=== PATIENT | female | born 1995 | race Caucasian/White ===

== ENCOUNTER 2019-06-16 17:58 | Emergency (ER) | payer OTHER, SELFPAY ==
[2019-06-16 18:05] VITALS: BP 128/76; PULSE 87; RESP 19; TEMP 37.3; O2SAT 100
--- NOTE | 2019-06-16 18:14 | ED.GENADULT ---
HPI - General Adult General Chief complaint: Upper Respiratory Infection Stated complaint: sore throat/lewis/body ache Source: patient and RN notes reviewed Mode of arrival: ambulatory Limitations: no limitations History of Present Illness HPI narrative: This is a 23 years old female presents to the office for an evaluation of sore throat for a few days. Associated with bodyache and headache. She did recieved influenza vaccine for the season. She does not smoke. She has been taking ibuprofen for her symtpoms. Denies sick contact. Related Data Home Medications Medication Instructions Recorded Confirmed levonorgestrel [Mirena] 1 device INTRAUTERINE ONCE 06/16/19 06/16/19 Allergies Allergy/AdvReac Type Severity Reaction Status Date / Time No Known Allergies Allergy Verified 06/16/19 18:11 Review of Systems Review of Systems: Narrative: CONSTITUTIONAL: Reports feverish,chills, sweats and bodyache. ENT: Reports congestion, sore throat. Denies otalgia. CARDIOVASCULAR: Denies chest pain, palpitation, edema. RESPIRATORY: Denies dyspnea, wheezing. Reports cough GASTROINTESTINAL: Denies abdominal pain, nausea, vomiting, diarrhea. GENITOURINARY: Denies urinary symptoms SKIN: Denies rash MUSCULOSKELETAL: Denies acute back pain NEUROLOGIC: Denies lightheaded PMFSH Social History Social History (Updated 06/16/19 @ 18:20 by MARCELLO Her) Smoking status: Never smoker Comments At time of signature, I agree with nursing past medical, surgical, social and family history. There is no relevant family history pertinent to the presenting complaint. Exam Narrative: Exam Narrative: GENERAL: This is a well-nourished, well-developed patient, in no apparent distress. EYES: Sclera clear/white. Vision is grossly intact. EARS: External ears normal, auditory canals clear and without drainage, TMs normal without perforation. Hearing grossly intact. NOSE: External nose normal with no obvious nasal discharge, nares without redness, no rhinorrhea. THROAT: Mucous membranes moist, posterior pharynx edematous with tonsils 2+ with exudative NECK: Neck supple, non-tender without lymphadenopathy, masses or thyromegaly. CARDIOVASCULAR: Regular rate and rhythm without murmurs, gallops, or rubs. RESPIRATORY: Clear to auscultation. Breath sounds equal bilaterally. No wheezes, rales, or rhonchi. GASTROINTESTINAL: Abdomen soft, non-tender, nondistended. Bowel sounds are active. No hepato-splenomegaly, or palpable masses. No guarding. SKIN: warm, intact with no suspicious lesions or rash, good texture and turgor. NEURO: awake, alert, and oriented to person, place and time. There were no obvious focal neurologic abnormalities. Steady gait [place] Coma Scale Eye Opening: Spontaneous 4 [place] Coma Scale Motor: Obeys Commands 6 [place] Coma Scale Verbal: Oriented 5 Course Vital Signs Vital signs: Vital Signs Temperature 99.1 F 06/16/19 18:05 Pulse Rate 87 06/16/19 18:05 Respiratory Rate 19 06/16/19 18:05 Blood Pressure 128/76 06/16/19 18:05 Pulse Oximetry 100 06/16/19 18:05 Temperature 99.1 F 06/16/19 18:05 Pulse Rate 87 06/16/19 18:05 Respiratory Rate 19 06/16/19 18:05 Blood Pressure 128/76 06/16/19 18:05 Pulse Oximetry 100 06/16/19 18:05 Medical Decision Making Differential Diagnosis Differential Diagnosis: pneumonia, Allergic Rhinitis, Upper respiratory cough syndrome, Pharyngitis, Sinusitis, Bronchitis, otitis media, viral URI, Asthma/reactive airway disease, influenza Vital Signs Vital Signs: Vital Signs Temperature 99.1 F 06/16/19 18:05 Pulse Rate 87 06/16/19 18:05 Respiratory Rate 19 06/16/19 18:05 Blood Pressure 128/76 06/16/19 18:05 Pulse Oximetry 100 06/16/19 18:05 Temperature 99.1 F 06/16/19 18:05 Pulse Rate 87 06/16/19 18:05 Respiratory Rate 19 06/16/19 18:05 Blood Pressure 128/76 06/16/19 18:05 Pulse Oximetry 100 06/16/19 18:05 Lab Data Lab
== END 2019-06-16 18:35 | disposition home or self-care (01) ==
PROVIDERS: Emergency Provider Nurse Practitioner; PCP Physician Assistant
DX: J03.90 Acute tonsillitis, unspecified (principal)
CPT/HCPCS: 87081; 87880; 99213; G0463

== ENCOUNTER 2020-05-01 09:51 | Outpatient (CLI) | payer OTHER, SELFPAY ==
--- NOTE | ~2020-05-01 | XR_ITS ---
EXAMINATION: XR foot LT min 3V EXAM DATE: 05/01/2020 10:08 INDICATION: Left foot pain. TECHNIQUE: Left foot dorsoplantar, lateral and oblique projections obtained and reviewed. There is n o prior study for comparison. FINDINGS: Left metatarsal bones unremarkable. There are no bony erosions identified. No periostea l reaction or band of sclerosis to suggest subacute stress fracture. There are no acute fractures or dislocations identified. There is no subcutaneous gas. The soft tissue is unremarkable. There are no radiopaque foreign bodies. IMPRESSION: Unremarkable XR foot LT min 3V exam. Reviewed, dictated and finalized at location A. [employer]
== END 2020-05-01 09:52 | disposition home or self-care (01) ==
PROVIDERS: PCP Physician Assistant; Visit Provider Physician Assistant
DX: M79.672 Pain in left foot (principal)
CPT/HCPCS: 73630

== ENCOUNTER → 2021-02-25 16:30 | Outpatient (CLI) | payer OTHER, SELFPAY ==
--- NOTE | ~2021-02-25 | XR_ITS ---
EXAMINATION: XR foot RT min 3V DATE: 02/25/2021 16:50 INDICATION: Right foot pain TECHNIQUE: Dorsoplantar, two oblique and lateral views of the right foot were obtained. COMPARISON: None. FINDINGS: Alignment is normal. No fracture. Joint spaces are normal. No cortical erosions or periosteal reactio n. Soft tissues are unremarkable. IMPRESSION: 1. Negative right foot radiographs. Reviewed, dictated and finalized at location A. LAB RADIOLOGY TECHNICIAN
== END ==
PROVIDERS: PCP Physician Assistant; Visit Provider Physician Assistant
DX: M79.671 Pain in right foot (principal)
CPT/HCPCS: 73630

== ENCOUNTER → 2021-11-12 10:46 | Outpatient (CLI) | payer OTHER, SELFPAY ==
--- NOTE | ~2021-11-12 | US_ITS ---
US thyroid INDICATION: Swallowed are of the thyroid gland. Weight gain. Thyromegaly. TECHNIQUE: Real-time sonographic images of the thyroid gland were obtained. COMPARISON: No prior studies for comparison. FINDINGS: The right thyroid lobe measures 5.6 x 1.4 x 1.7 cm. The left thyroid lobe measures 4.8 x 1 .3 x 1.6 cm. There is normal echotexture and echogenicity throughout the thyroid gland. No discrete n odules identified. Normal vascular flow is present. IMPRESSION: 1. Normal thyroid without discrete nodule or abnormal vascularity. Reviewed, dictated and finalized at location A.
--- NOTE | ~2021-11-12 | US_ITS ---
EXAMINATION: US transvaginal DATE: 11/12/2021 11:27 INDICATION: Excessive menstruation. Comparison:No prior studies for comparison. TECHNIQUE: Multiple transabdominal and endovaginal sonographic images of the pelvis performed. FINDINGS: The uterus measures 7.8 x 3.9 x 4.3 cm. The endometrial complex measures 7 mm. The right ovary measures 3.4 x 3.1 x 3 cm and the left ovary measures 4 x 2.4 x 3.4 cm. There are sm all follicles in each ovary. Normal doppler signal in both ovaries. There is no free fluid in the pelvis. There are no abnormal masses seen on either side. IMPRESSION: 1. Unremarkable pelvic ultrasound. Reviewed, dictated and finalized at location A.
== END ==
PROVIDERS: PCP Physician Assistant; Visit Provider Nurse Practitioner
DX: N92.0 Excessive and frequent menstruation with regular cycle (principal); E07.9 Disorder of thyroid, unspecified
CPT/HCPCS: 76536; 76830

== ENCOUNTER 2022-03-21 02:14 | Day surgery (SDC) | payer OTHER, SELFPAY ==
[2022-03-13 13:45] VITALS: BMI 29.5
[2022-03-21 07:43] VITALS: BP 135/85; PULSE 74; RESP 17; TEMP 36.2; O2SAT 100
[2022-03-21] MEDS: LACTATED RINGERS 1,000 ML 150 ML IV CONT (07:51)
--- NOTE | 2022-03-21 08:09 | P.PNAN_ITS ---
Anes - Initial Pre Proc Eval Procedure: Operation Date: 03/21/22 08:30 Proposed Procedures p Esophagogastroduodenoscopy EGD - Pérez Stout MD Date/Time: 03/21/22 08:09 Surgeon: Pérez Stout MD Pre Op Diagnosis: heartburn Patient Data Age: 26 Gender: F Height: 1.63 m Weight: 78.4 kg Last Vital Signs Temp 97.2 F L 03/21/22 07:43 Pulse 74 03/21/22 07:43 Resp 17 03/21/22 07:43 BP 135/85 03/21/22 07:43 Pulse Ox 100 03/21/22 07:43 O2 Del Method Room Air 03/21/22 07:43 Allergies Allergy/AdvReac Type Severity Reaction Status Date / Time No Known Allergies Allergy Verified 03/21/22 07:41 Home Medications Medication Instructions Recorded Confirmed Type pantoprazole 40 mg tablet,delayed 40 mg PO DAILY 03/13/22 03/21/22 History release (Protonix) Patient hx anesthesia problems: none Family hx anesthesia problems: none Results Review: All pre-operative results and documents have been reviewed as part of the pre- operative evaluation. [facility] Social History Social History (Updated 06/16/19 @ 18:20 by MARCELLO Her) Smoking status: Never smoker Alcohol intake: never Substance use: never Substance use type: does not use Living arrangements: alone Spiritual care concerns: No Anes - Eval Final PreProcedure Day of Procedure 03/21/22 08:09 Patient weight: overweight Heart: regular rate and rhythm Lungs: clear to auscultation Airway: Mallampati scale class II Neurological: alert and oriented Last oral intake: >/= 8 hours ASA classification: II Emergent: no Anesthetic plan: proceed Anesthesia type and monitoring: general GIVS and standard monitoring Results Review: All pre-operative results and documents have been reviewed as part of the pre- operative evaluation. Informed Consent: The patient's anesthetic plan and its attendant risks and benefits were discussed with the patient/family/POA. Questions were solicited and answers provided to the satisfaction of the patient/family/POA.
--- NOTE | 2022-03-21 08:17 | PM.HPGS ---
History of Present Illness History of Present Illness Consent: Risks, benefits, and alternatives have been discussed and questions answered. Patient agrees to proceed with procedure. Chief complaint: heartburn Narrative: Erica Giraldo is a 26 year old female with chronic gerd and indigestion recently started on omeprazole daily with some improvement, never had egd. Also burping. Review of Systems Constitutional: Constitutional: Denies headache(s) and Denies weakness Eyes: Eyes: Denies blurry vision ENT: Reports Normal hearing present, Denies headache(s) and Denies neck pain Cardiovascular: Cardiovascular: Denies chest pain and Denies dyspnea Respiratory: Respiratory: Denies dyspnea Gastrointestinal: Gastrointestinal: Reports no additional gastrointestinal complaints Genitourinary: Genitourinary: Denies dysuria Musculoskeletal: Musculoskeletal: Denies neck pain Integumentary/Breasts: Skin/Breast: Denies dry skin Neurologic: Reports Normal hearing present, Denies headache(s) and Denies weakness Psychiatric: Psychiatric: Denies anxiety Endocrine: Endocrine: Denies change in body appearance Hematologic/Lymphatic: Hematologic/Lymphatic: Denies easy bleeding Allergic/Immunologic: Allergic/Immunologic: Denies urticaria PMFSH Past Medical History Medical History (Updated 03/21/22 @ 08:18 by Pérez Stout MD) GERD (gastroesophageal reflux disease) Social History Social History (Updated 06/16/19 @ 18:20 by MARCELLO Her) Smoking status: Never smoker Alcohol intake: never Substance use: never Substance use type: does not use Living arrangements: alone Spiritual care concerns: No Meds Home Medications and Allergies Home Medications Medication Instructions Recorded Confirmed Type pantoprazole 40 mg tablet,delayed 40 mg PO DAILY 03/13/22 03/21/22 History release (Protonix) Allergies Allergy/AdvReac Type Severity Reaction Status Date / Time No Known Allergies Allergy Verified 03/21/22 07:41 Vital Signs Vital Signs - 24 hr 03/21/22 07:43 Temperature 97.2 F L Pulse Rate 74 Respiratory Rate 17 Blood Pressure 135/85 Pulse Oximetry 100 Oxygen Delivery Room Air Exam Const: General: comfortable and no acute distress HENMT: Face/Nose/Sinus: Normal nares present Eyes: General: appearance normal, both eyes and all related structures Neck: Neck: no JVD Resp: Auscultation: clear to auscultation bilaterally Cardio: Rate: regular rate Rhythm: regular rhythm GI: Inspection: non-distended GI Palp: Yes Soft to palpation Skin: General skin exam: normal color Neuro: General: gait normal Speech: normal speech Extrem: General: normal to inspection Psych: Mental Status: mental status grossly normal Assessment and Plan Assessment and plan (1) GERD (gastroesophageal reflux disease): Code(s): K21.9 - Gastro-esophageal reflux disease without esophagitis Status: Acute Assessment and Plan: egd with bx some improvement with ppi
[2022-03-21 08:31] VITALS: BP 119/74; PULSE 75; RESP 19; O2SAT 100
[2022-03-21 08:41] VITALS: BP 126/83; PULSE 78; RESP 19; O2SAT 100
[2022-03-21 08:51] VITALS: BP 131/88; PULSE 82; RESP 16; O2SAT 100
== END 2022-03-21 08:59 | disposition home or self-care (01) ==
PROVIDERS: PCP Physician Assistant; Visit Provider Internal Medicine Gastroenterology
PROC: 0DJ08ZZ Inspection of Upper Intestinal Tract, Via Natural or Artificial Opening Endoscopic (ICD-10-PCS; CPT 43235; principal; 2022-03-21 08:30)
DX: K21.00 Gastro-esophageal reflux disease with esophagitis, without bleeding (principal); K44.9 Diaphragmatic hernia without obstruction or gangrene; K29.70 Gastritis, unspecified, without bleeding
CPT/HCPCS: 43239; 88305; J2704; J7120

== ENCOUNTER 2024-09-19 09:31 | Emergency (ER) | payer OTHER, SELFPAY ==
--- NOTE | ~2024-09-19 | CT_ITS ---
EXAMINATION: CT abdomen pelvis w con DATE: 09/19/2024 10:30 INDICATION: Epigastric pain and nausea TECHNIQUE: Computed tomography (CT) of the abdomen and pelvis was performed with 100 mL Omnipaque-350 intravenous contrast. Automated exposure control and iterative reconstruction technique were employe d. The dose-length product was 246.70 mGy-cm. COMPARISON: None FINDINGS: Lung bases are clear. Heart size is normal. No pericardial or pleural effusion. Liver, pancreas, bila teral adrenal glands and kidneys are normal. 6 mm low-attenuation cyst versus hemangioma in the splee n. There is edematous-appearing wall thickening of the none dilated gallbladder which measures up to 3 cm in maximal diameter which is normal. No pericholecystic inflammatory stranding. No intrahepatic biliary ductal dilation. Bowels including the appendix are normal. Bladder is normal. Pessary in the vaginal vault. Anteverted uterus and bilateral adnexa are unremarkable. No free intraperitoneal gas o r fluid. No pathologically enlarged abdominal or pelvic lymphadenopathy. Mild lumbar spondylosis. IMPRESSION: 1. Edematous wall thickening of the nondilated gallbladder. Differential would include cholecystitis either acute or chronic, sequela of liver, heart or renal disease or other cause of generalized edema . Correlate for Juarez sign and could consider further evaluation with either HIDA scan or right uppe r quadrant ultrasound. Reviewed, dictated and finalized at location A. IMPRESSION: 1. Edematous wall thickening of the nondilated gallbladder. Differential would include cholecystitis either acute or chronic, sequela of liver, heart or renal disease or other cause of generalized edema. Correlate for Juarez sign and cou ld consider further evaluation with either HIDA scan or right upper quadrant ul trasound.
--- NOTE | ~2024-09-19 | US_ITS ---
Limited ABDOMINAL ULTRASOUND (Doppler ultrasound interrogation techniques used as needed for this exa m.) Ordering provider: Milly Sood PA-C History: . ruq pain, n/v . Comparison: None. FINDINGS: PANCREAS: Normal echotexture and size of the visualized portion.. PORTAL VEIN: Hepatopedal flow demonstrated. LIVER: Normal size and echotexture. No focal hepatic lesions or perihepatic fluid collections are shireen ntified. BILIARY DUCTS: No intra or extrahepatic biliary dilation. Common bile duct measures 2.9 mm in diamete r which is normal for patient's age. GALLBLADDER: Stone is seen measuring 1.8 x 2.2 x 0.8 cm. Otherwise, No sludge, gallbladder wall thick ening or pericholecystic fluid. Wall thickness is 5.6 mm. Negative sonographic Juarez's sign. Aorta: Patent. IVC: Patent. FREE FLUID: None visualized within the upper abdomen. IMPRESSION: Cholelithiasis with slightly thickened wall. Clinical evaluation for cholecystitis advised.. Otherwis e, normal limited abdominal ultrasound. Reviewed, dictated and finalized at location A. IMPRESSION: Cholelithiasis with slightly thickened wall. Clinical evaluation for cholecysti tis advised.. Otherwise, normal limited abdominal ultrasound.
[2024-09-19 09:37] VITALS: BP 137/88; PULSE 68; RESP 15; TEMP 36.4; O2SAT 100
--- NOTE | 2024-09-19 09:47 | ED.ABDPAIN ---
HPI - Abdominal Pain General Chief Complaint: Abdominal Pain Stated Complaint: abd pain Time Seen by Provider: 09/19/24 09:33 Source: patient Mode of arrival: ambulatory Limitations: no limitations History of Present Illness HPI narrative: Patient is a 29-year-old female, with PMH of GERD, who presents the ED with report of upper abdominal pain. Patient reports pain began last Thursday in the middle of the night, took pantoprazole and ibuprofen and states the pain resolved. States pain returned Thursday and last night again, worse each time. She tried taking pantoprazole, TUMS, gas-x, ibuprofen last night w/o relief last night. She notes she did eat chili last night. Pain was persistent, radiates diffusely across upper abdomen, and through to her back between her shoulder blades. Reports nausea associated with pain, denies diarrhea, constipation, vomiting, CP, SOB. Related Data Home Medications ?Medication ?Instructions ?Recorded ?Confirmed ?Last Taken ?Type sarecycline 150 mg tablet (Seysara) 150 mg PO DAILY 06/26/22 06/26/22 Unknown History spironolactone 25 mg tablet 25 mg PO DAILY 06/26/22 06/26/22 Unknown History Allergies Allergy/AdvReac Type Severity Reaction Status Date / Time No Known Allergies Allergy Verified 09/19/24 09:36 Review of Systems Review of Systems: All systems reviewed & are unremarkable except as noted in HPI. All systems reviewed & are unremarkable except as noted in HPI and below PMFSH Past Medical History Medical History Abdominal cramping Bloating Irritable bowel syndrome GERD (gastroesophageal reflux disease) Social History Social History Smoking status: Never smoker Alcohol intake: never Substance use: never Substance use type: does not use Living arrangements: alone Spiritual care concerns: No Exam Narrative: GENERAL: Well appearing, well-nourished, non-toxic, in no acute distress. HEAD: Normocephalic, atraumatic. RESPIRATORY: Airway patent, respirations nonlabored. Clear to auscultation bilaterally, no rales, rhonchi, wheezing. CARDIOVASCULAR: Regular rate and rhythm without murmurs, rubs, or gallops. ABDOMINAL: Soft, epigastric TTP, no rebound, nondistended. Normoactive BS. MUSCULOSKELETAL: Moves all extremities. No gross deformities. Mild diffuse tenderness throughout mid scapular region. SKIN: Warm, dry, normal color. NEURO: A&O X3. Speech clear. PSYCHIATRIC: Appropriate mood and affect. Normal interaction. Course Vital Signs Vital signs: Vital Signs Temperature 97.6 F 09/19/24 09:37 Pulse Rate 68 09/19/24 09:37 Respiratory Rate 15 09/19/24 09:37 Blood Pressure 137/88 09/19/24 09:37 Pulse Oximetry 100 09/19/24 09:37 Oxygen Delivery Room Air 09/19/24 09:37 Temperature 97.6 F 09/19/24 09:37 Pulse Rate 62 09/19/24 13:45 Respiratory Rate 16 09/19/24 13:45 Blood Pressure 124/83 09/19/24 13:45 Pulse Oximetry 97 09/19/24 13:45 Oxygen Delivery Room Air 09/19/24 09:37 MDM - Abdominal Pain MDM Narrative Medical decision making narrative: Patient presented to ED with report of epigastric abdominal pain that has been intermittent over the last several days. History of acid reflux. Vital signs are stable upon arrival. Patient is in no acute distress. No chest pain or shortness of breath. Cbc with white blood cell count of 11.0. Neutrophil predominance. No bandemia. CMP is unremarkable. Normal LFTs and lipase. UA with 6-10 WBC, 1+ leuk esterase, but occasional squamous cells. Patient denies any urinary complaints. Likely contaminated catch. Sent for culture. Urine is negative. CT scan of abdomen/pelvis was obtained showing edematous wall thickening of the gallbladder. May be consistent with acute cholecystitis. Right upper quadrant ultrasound obtained and showing cholelithiasis, mild wall thickening. Negative sonographic Juarez sign. Patient given Pepcid, GI cocktail, Zofran in the ED. On re-evaluation, she is feeling improved. Pain is much more tolerable at this time. Discussed case with Dr. Camacho, gen surgery, recommended antibiotics, low-fat diet, pain control for home, close follow-up in office. Discussed this with patient. Also recommended that she continue to take her pantoprazole daily as I do believe there is a component of acid reflux contributing to symptoms. Patient is in agreement with plan. Feels comfortable going home. Discussed very strict return precautions. Discharged in stable condition. Medical Records Attestation: I reviewed the patient's medical records. Lab Data Attestation: I reviewed the patient's lab results. 09/19/24 09:48 09/19/24 09:48 Labs: Lab Results 09/19/24 09/19/24 09/19/24 Range/Units 09:48 10:05 10:06 WBC 11.0 H (4.5-10.0) K/mm3 RBC 5.16 (4.2-5.4) M/mm3 Hgb 13.8 (12.0-15.0) g/dL Hct 42.6 (37.0-47.0) % MCV 82.6 (80-100) fl MCH 26.7 (26-34) pg MCHC 32.4 (32-36) g/dl RDW 12.5 (11.5-14.5) % Plt Count 372 (150-375) k/mm3 MPV 10.0 (7.4-10.4) fl Immature Gran % (Auto) 0.3 (0-0.5) % Neut % (Auto) 80.4 H (45.5-73.1) % Lymph % (Auto) 14.8 L (18.3-44.2) % [place] % (Auto) 3.9 (2.6-8.5) % Eos % (Auto) 0.3 (0-4.4) % Baso % (Auto) 0.3 (0.2-1.2) % Lymph # (Auto) 1.63 (0.9-3.2) K/mm3 [place] # (Auto) 0.4 (0.1-0.6) K/mm3 Eos # (Auto) 0.0 (0-0.3) K/mm3 Baso # (Auto) 0.0 (0.0-0.1) K/mm3 Abs Immat Gran (auto) 0.03 (0.00-0.031) K/mm3 Absolute Neuts (auto) 8.8 H (1.3-6.7) K/mm3 Absolute Nucleated RBC 0.000 (0.0-0.012) K/mm3 Nucleated RBC % 0.0 (0.0-0.2) % Sodium 137 (137-145) mmol/L Potassium 3.7 (3.4-5.0) mmol/L Chloride 102 (98-107) mmol/L Carbon Dioxide 23 (22-30) mmol/L Anion Gap 12 (4-12) mmol/L BUN 10 (7-17) mg/dL Creatinine 0.67 L (0.7-1.0) mg/dL Estim Creat Clear Calc 92 ml/min Estimated GFR > 60 (59 - ) Glucose 111 H (65-110) mg/dL Calcium 9.9 (8.4-10.2) mg/dL Total Bilirubin 0.4 (0.2-1.3) mg/dL AST 25 (14-36) U/L ALT 19 (6-35) U/L Alkaline Phosphatase 81 (38-126) U/L Total Protein 8.4 H (6.3-8.2) g/dL Albumin 4.7 (3.5-5.1) g/dL Lipase 96 (23-300) U/L Urine Color Yellow (Yellow) Urine Appearance Clear (Clear) Urine pH 7.5 (5.0-9.0) Ur Specific [place] 1.018 (1.001-1.035) Urine Protein Negative (Negative) mg/dL Urine Glucose (UA) Negative (Negative) mg/dL Urine Ketones Negative (Negative) mg/dL Ur Blood (Man) Negative (Negative) Urine Nitrate Negative (Negative) Urine Bilirubin Negative (Negative) Urine Urobilinogen 1.0 (<2.0) mg/dL Leukocyte Esterase Rfl 1+ H (Negative) BERNARD/UL Urine RBC 0-2 (0-2) /hpf Urine WBC 6-10 H (0-3) /hpf Ur Squamous Epith Cells Occasional (Few) /hpf Urine Bacteria 1+ H /hpf Urine Casts 0-2 POC Urine HCG, Qual Negative (Negative) Imaging Data Attestation: I personally reviewed and interpreted this imaging study as follows: Radiologist's impression: ITS Impressions Abdomen/Pelvis CT 09/19/24 10:32 IMPRESSION: 1. Edematous wall thickening of the nondilated gallbladder. Differential would include cholecystitis either acute or chronic, sequela of liver, heart or renal disease or other cause of generalized edema. Correlate for Juarez sign and could consider further evaluation with either HIDA scan or right upper quadrant ultrasound. Abdomen Ultrasound 09/19/24 11:59 IMPRESSION: Cholelithiasis with slightly thickened wall. Clinical evaluation for cholecystitis advised.. Otherwise, normal limited abdominal ultrasound. Discharge Plan Discharge Clinical Impression: Cholelithiasis Qualifiers: Cholelithiasis location: gallbladder Cholecystitis presence: without cholecystitis Biliary obstruction: without biliary obstruction Qualified Code(s): K80.20 - Calculus of gallbladder without cholecystitis without obstruction Patient Disposition: Home Condition: Stable Instructions: Antibiotic Form, Cholecystitis (ED), Gallstones (ED), Low Fat Diet (ED) Additional Instructions: Take antibiotics as prescribed. Follow low-fat diet. Utilize [place] as needed for further pain, Zofran as needed for nausea. Recommend taking pantoprazole daily. Follow-up with General surgery for further evaluation. Return to the ED if you experience worsening or severe pain, unable to keep down food or drink, fevers, chest pain, difficulty breathing, or any other symptoms of concern. Patient Language: Cook Islander Prescriptions: New hydrocodone-acetaminophen 5-325 mg tablet 1 tablet PO Q6H PRN (Reason: pain) Qty: 15 0RF metronidazole 500 mg tablet 500 mg PO BID 7 Days Qty: 14 0RF ciprofloxacin HCl 500 mg tablet 500 mg PO Q12H 7 Days Qty: 14 0RF ondansetron 4 mg tablet,disintegrating 4 mg PO Q8H PRN (Reason: nausea and vomiting) Qty: 15 0RF No Action Seysara 150 mg tablet 150 mg PO DAILY spironolactone 25 mg tablet 25 mg PO DAILY dicyclomine 10 mg capsule 10 mg PO TID PRN (Reason: bloating, cramping) Qty: 90 11RF pantoprazole [Protonix] 40 mg tablet,delayed release (DR/EC) 40 mg PO DAILY Qty: 30 5RF Follow-up/Referrals: Carolina Camacho MD [Physician] - (GENERAL SURGERY) Graham,NICHOLE Simons [Non-Staff] - Time of Disposition: 13:25
--- NOTE | 2024-09-19 09:49 | PC.NURSE ---
Pt unable to urinate at this time
[2024-09-19 09:54] LABS: Basophils Percent Auto 0.3 % (0.2-1.2); Eosinophils Percent Auto 0.3 % (0-4.4); Hematocrit 42.6 % (37.0-47.0); Hemoglobin 13.8 g/dL (12.0-15.0); Immature Granulocyte Absolute 0.03 K/mm3 (0.00-0.031); Immature Granulocyte Percent A 0.3 % (0-0.5); Lymphocytes Absolute Auto 1.63 K/mm3 (0.9-3.2); Lymphocytes Percent Auto 14.8 % (18.3-44.2); Mean Corpuscular HGB Conc 32.4 g/dl (32-36); Mean Corpuscular Hemoglobin 26.7 pg (26-34); Mean Corpuscular Volume 82.6 fl (80-100); Monocytes Absolute Auto 0.4 K/mm3 (0.1-0.6); Monocytes Percent Auto 3.9 % (2.6-8.5); Neutrophils Absolute Auto 8.8 K/mm3 (1.3-6.7); Neutrophils Percent Auto 80.4 % (45.5-73.1); Platelet Count Result 372 k/mm3 (150-375); Red Blood Count 5.16 M/mm3 (4.2-5.4); Red Cell Distribution Width 12.5 % (11.5-14.5)
[2024-09-19 10:04] LABS: Alanine Aminotransferase 19 U/L (6-35); Albumin Level 4.7 g/dL (3.5-5.1); Alkaline Phosphatase 81 U/L (38-126); Anion Gap 12 mmol/L (4-12); Aspartate Amino Transferase 25 U/L (14-36); Bilirubin,Total 0.4 mg/dL (0.2-1.3); Blood Urea Nitrogen 10 mg/dL (7-17); Calcium 9.9 mg/dL (8.4-10.2); Carbon Dioxide 23 mmol/L (22-30); Chloride 102 mmol/L (98-107); Estimated CRCL calculation 92 ml/min; Estimated Glomerular Filt Rate > 60; Glucose 111 mg/dL (65-110); Lipase 96 U/L (23-300); Potassium 3.7 mmol/L (3.4-5.0); Sodium 137 mmol/L (137-145); Total Protein 8.4 g/dL (6.3-8.2)
--- OUTSIDE RECORDS SUMMARY | 2024-09-19 10:04 | XMS_ITS | Patient Health Record ---
Author Organization [facility] Address [address] [facility] [place] [address] Care Team Providers Care Curriculum Director Name Role Phone Shantell Arredondo [phone] Allergies No Known Allergies Reason For Referral No Information Medications Medication SIG (Take, Route, Frequency, Duration) Notes Start Date End Date Status Phentermine HCl Unkn own Biotin Unknown metFORMIN HCl ER 500 MG 1 tablet with ev ening meal Orally Once a day for 90 days 04/04/2024 Unknown Vitamin D Unknown Pantoprazole Sodium Unknown Doxycycline Unknown dexAMETHasone 1 MG 1 tablet Orally at 1 0 pm night before 8 am cortisol for 1 days 04/04/2024 Not-Taking Problems Problem Type SNOMED Code ICD Code Onset Dates Problem Status W/U Status Risk Notes Problem Vitamin D deficiency (64178636) Vitamin D deficiency, unspecified (E55.9) Active confirmed Problem Obesity (840522396) Obesity, unspecified (E66.9) Active confirmed Problem 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, unspecified (E04.9) Active confirmed Problem Irregular menstruation (03585142) Irregular menstruation, unspecified (N92.6) Active confirmed Vital Signs Heart Rate 91 /min 04/04/2024 Blood pressure diastolic 82 mm Hg 04/04/2024 Height 64 in 04/04/2024 Blood pressure systolic 122 mm Hg 04/04/2024 Weight 167.6 lbs 04/04/2024 BMI 28.77 kg/m2 04/04/2024 Encounters Encounter Location Date Provider Diagnosis [facility] [employer] - Shantell Arredondo [address] [place] [address] 04/04/2024 Shantell Arredondo Obesity, unspecified E66.9 ; Irregular menstruation, unspecified N92.6 ; Vitamin D deficiency, unspecified E55.9 ; Nontoxic goiter, unspecified E04.9 ; Other fatigue R53.83 and Dietary counseling and surveillance Z71.3 [facility] [address] [place] [address] 05/01/2024 Shantell Arredondo [facility]- Dr. Quintana [address] [place] [address] 04/27/2024 Shantell Arredondo Assessments Encounter Date Diagnosis (ICD Code) Assessment Notes Treatment Notes Treatment Clinical Notes Section Notes 04/04/2024 Obesity, unspecified (ICD-10 - E66.9) 04/04/2024 Irregular menstruation, unspecified (ICD-10 - N92.6) 04/04/2024 Vitamin D deficiency, unspecified (ICD-10 - E55.9) 04/04/2024 Nontoxic goiter, unspecified (ICD-10 - E04.9) 04/04/2024 Other fatigue (ICD-10 - R53.83) 04/04/2024 Dietary counseling and surveillance (ICD-10 - Z71.3) 04/04/2024 Other Assessment and Plan: 1. Acne- Continue Spironolactone and doxycycline as prescribed- Patient advised to be cautious with sun exposure due to doxycycline's photosensitivity 2. Weight gain and possible insulin resistance- Start Metformin for insulin resistance and weight management- Consider tirzepatide for weight loss if insurance coverage allows and after further evaluation 3. Borderline elevated blood sugar- Monitor blood sugar levels and adjust Metformin dosage as needed 4. Possible cortisol elevation and adrenal issues- Order urine cortisol and saliva cortisol tests- Check ACTH and other pituitary adrenal hormones- Consider adrenal CT imaging based on test results 5. Thyroid evaluation- Order TPO antibodies, T4, and T3 tests- Check iodine levels- Perform thyroid ultrasound due to enlarged appearance 6. Sleep disturbances and nightmares- Monitor and address in future visits if needed 7. Hiatal hernia and heartburn- Continue pantoprazole as prescribed Follow-up:- Schedule a follow-up appointment in 3-4 weeks after blood work and ultrasound results are available Spent 15 minutes preventative counseling patient on dietary recommendations and changes in setting of hyperglycemia- need to restrict refined sugars and processed foods and incorporate up to 150 minutes of moderate level activity weekly. Spent 45 minutes preparing to see the patient (ex review of tests/chart), obtaining and / or reviewing separately obtained history, performing a medically appropriate examination and/or evaluation, counseling and educating the patient/family/rn intensive care unit, ordering medications, tests, or procedures, referring and communicating with other health client care representative, documenting clinical information in the electronic or other health record, independently interpreting results and communicating results to the patient/family/rn intensive care unit and care coordinating patient plan. Patient alert and oriented x 4 and aware of discussion noted above and in agreeance to plan in management of fatigue, weight gain/obesity/weight management and goiter. Plan Of Treatment Pending Test Test Name Order Date ultrasound thyroid 04/04/2024 Insurance Providers Payer Name Payer Address Payer Phone Subscriber Number Group Number Insured Name Patient Relationship to Insured Coverage Start Date Coverage End Date [facility] [address] [address] [place] [address] [phone] [id number] Erica Herrera Self - patient is the insured Medical (General) History Surgical History Surgery Date(Month/Year) Hymenectomy 2012
--- OUTSIDE RECORDS SUMMARY | 2024-09-19 10:04 | XMS_ITS | Encounter Summary ---
Author Organization [facility] Health Address [address] [place] [address] Care Team Providers Care Rope Laying Machine Operator Name Role Phone Unavailable Primary Care Provider Unavailabl e Prior Encounters Date Type Department Care Team Description 05/10/2021 Telephone [facility] [address] [place] [address] Helio Coronado DDS 03/11/2021 Travel 03/11/2021 3:00 PM GLUE MOUNTER OPERATOR Consult [facility] [address] [place] [address] Helio Coronado DDS Plan of Treatment Not on file Procedures Procedure Name Priority Date/Time Associated Diagnosis Comments 19 CORE BUILDUP, INCLUDING ANY PINS WHEN REQUIRED Routine 03/11/2021 3:00 PM GLUE MOUNTER OPERATOR 19 TREATMENT OF ROOT CANAL OBSTRUCTION; NON-SURGICAL ACCESS Routine 03/11/2021 3:00 PM GLUE MOUNTER OPERATOR 19 PULP VITALITY TESTS Routine 03/11/2021 3:00 PM GLUE MOUNTER OPERATOR 19 ENDODONTIC THERAPY, MOLAR TOOTH (EXCLUDING FINAL ROMAN CATHOLIC) Routine 03/11/2021 3:00 PM GLUE MOUNTER OPERATOR FLUX PLANT OPERATOR CONSULT Routine 03/11/2021 3:00 PM GLUE MOUNTER OPERATOR Visit Diagnoses Not on file Insurance [employer] PPO
--- OUTSIDE RECORDS SUMMARY | 2024-09-19 10:04 | XMS_ITS | Clinical Summary ---
Author Organization [facility] Health Address [address] [place] [address] Care Team Providers Care Ward Helper Name Role Phone Unavailable Primary Care Provider Unavailabl e Medications No known medications Active Problems No known active problems Social History Tobacco Use Types Packs/Day Years Used Date Smoking Tobacco: Never Assessed Comments Unknown Sex and Gender Information Value Date Recorded Sex Assigned at Not on file Legal Sex Female 9:28 AM PST Gender Identity Not on file Sexual Orientation Not on file Plan of Treatment Health Maintenance Due Date Last Done Comments Dental Oral Exam 1995 Dental Prophylaxis 1995 Dental X-Ray: Bitewings 1995 Dental X-Ray: Full Mouth 1995 Dental X-Ray: Panoramic 1995 Meningococcal B Vaccine Aged Out No l onger eligible based on patient's age to complete this topic Insurance [employer] PPO
--- OUTSIDE RECORDS SUMMARY | 2024-09-19 10:04 | XMS_ITS ---
Author Organization [facility] Address [address] [place] [address] Care Team Providers Care Airplane Fueler Name Role Phone Shantell Arredondo Ebonie [phone] REASON FOR VISIT 1 month Follow-up/ lab review Medications Medication SIG (Take, Route, Frequency, Duration) Notes Start Date End Date Status Phentermine HCl Unkn own Biotin Unknown metFORMIN HCl ER 500 MG 1 tablet with ev ening meal Orally Once a day for 90 days 04/04/2024 Unknown Vitamin D Unknown dexAMETHasone 1 MG 1 tablet Orally at 1 0 pm night before 8 am cortisol for 1 days 04/04/2024 Not-Taking Pantoprazole Sodium Unknown Doxycycline Unknown Encounters Encounter Location Date Provider Diagnosis [facility], [facility] - Shantell Arredondo [address] [place] [address] 05/02/2024 Shantell Arredondo Plan Of Treatment No Information Progress Notes * SHARONDane MICHELBharatB:[birth year] (29 yo F)Acc No.[id number]:05/02/2024 Progress Notes Patient: Erica VALADEZ Provider: Esperanza Arredondo MD :1995 A ge:28 Y S ex:Female Date:05/02/2024 Address:[address] [place] [address] [facility] Subjective: * Chief Complaints: * 1 . 1 month Follow-up/ lab review. * Medical History: * Medications: N ot-Taking/PRN dexAMETHasone 1 MG Tablet 1 tablet Orally at 10 pm night before 8 am cortisol , Unknown Biotin , Unknown Phentermine HCl , Unknown Doxycycline , Unknown Pantoprazole Sodium , Unknown Vitamin D , Unknown metFORMIN HCl ER 500 MG Tablet Extended Release 24 Hour 1 tablet with evening meal Orally Once a day Objective: * Vitals: Assessment: Plan: * Treatment: * Billing Information: * Visit Code: * Procedure Codes: * Electronic signature of Hebert Arredondo MD on 09/19/2024 at 08:33 AM CDT Sign off status: Pending * Provider: Esperanza Arredondo MD Date: 05/02/2024 Generated for Girish gómez/Beck/Vishnu on: 09/19/2024 08:33 AM CDT
--- OUTSIDE RECORDS SUMMARY | 2024-09-19 10:05 | XMS_ITS ---
Author Organization [facility] Address [address] [place] [address] Care Team Providers Care Print Production Manager Name Role Phone Shantell Arredondo [phone] REASON FOR VISIT 1 month f/u toshia Encounters Encounter Location Date Provider Diagnosis [facility], [facility] - Shantell Arredondo [address] [place] [address] 04/25/2024 Shantell Arredondo Plan Of Treatment No Information Progress Notes * SHARONGuillermoB:[birth year] (29 yo F)Acc No.[id number]:04/25/2024 Progress Notes Patient: Dane VALADEZa Provider: Esperanza Arredondo MD :1995 A ge:28 Y S ex:Female Date:04/25/2024 Address:[address] [place], [place] [id number] Subjective: * Chief Complaints: * 1 . 1 month f/u toshia. * Medical History: Objective: * Vitals: Assessment: Plan: * Treatment: * Billing Information: * Visit Code: * Procedure Codes: * Electronic signature of Hebert Arredondo MD on 09/19/2024 at 10:04 AM CDT Sign off status: Pending * Provider: Esperanza Arredondo MD Date: 0 04/25/2024 Generated for Girish gómez/Beck/eTransmitting on: 0 09/19/2024 10:04 AM CDT
[2024-09-19 10:07] LABS: BEDSIDEPREGUCG Negative (Negative)
[2024-09-19] MEDS: BELLADONNA ALK/PHENOB ELIX 10 ML, MAG HYDROX/ALUMINUM HYD/SIMETH 30 ML, LIDOCAINE 2% VI... PO (10:10)
[2024-09-19] MEDS: ONDANSETRON INJ 4 MG/2 ML VIAL IV PUSH (10:11)
[2024-09-19] MEDS: FAMOTIDINE 20 MG/2 ML VIAL IV PUSH (10:13)
[2024-09-19 10:14] LABS: Add Urine Microscopic? YES; Appearance Urine Clear (Clear); Bacteria Urine 1+ /hpf; Bilirubin Urine Negative (Negative); Blood Urine Negative (Negative); Color Urine Yellow (Yellow); Glucose Urine UA Negative (Negative); Ketones Urine Negative (Negative); Leukocyte Esterase Ur 1+ LEU/UL (Negative); Nitrate Urine Negative (Negative); Non Pathogenic Casts 0-2; Protein Urine Negative (Negative); RBC Urine 0-2 /hpf (0-2); Specific Grav Ur 1.018 (1.001-1.035); Squamous Epithelial Cell Urine Occasional /hpf (Few); pH Urine 7.5 (5.0-9.0)
[2024-09-19 10:16] VITALS: BP 127/86; PULSE 94; RESP 19; O2SAT 100
--- OUTSIDE RECORDS SUMMARY | 2024-09-19 11:39 | XMS_ITS | Clinical Summary ---
Author Organization [facility] Health Address [address] [place] [address] Care Team Providers Care Campus Recruiting Coordinator Name Role Phone Unavailable Primary Care Provider [...]
--- OUTSIDE RECORDS SUMMARY | 2024-09-19 11:39 | XMS_ITS | Encounter Summary ---
Author Organization [facility] Health Address [address] [place] [address] Care Team Providers Care Technical Programs Manager Name Role Phone Unavailable Primary Care Provider Unavailabl e Prior Encounters Date Type Department Care Team Description 05/10/2021 Telephone [facility] [address] [place] [address] Helio Coronado DDS 03/11/2021 Travel 03/11/2021 3:00 PM STEAM BRUSH OPERATOR Consult [facility] [address] [place] [address] Helio Coronado DDS Plan of Treatment Not on file Procedures Procedure Name Priority Date/Time Associated Diagnosis Comments 19 CORE BUILDUP, INCLUDING ANY PINS WHEN REQUIRED Routine 03/11/2021 3:00 PM STEAM BRUSH OPERATOR 19 TREATMENT OF ROOT CANAL OBSTRUCTION; NON-SURGICAL ACCESS Routine 03/11/2021 3:00 PM STEAM BRUSH OPERATOR 19 PULP VITALITY TESTS Routine 03/11/2021 3:00 PM STEAM BRUSH OPERATOR 19 ENDODONTIC THERAPY, MOLAR TOOTH (EXCLUDING FINAL TAOISM) Routine 03/11/2021 3:00 PM STEAM BRUSH OPERATOR COLLECTIONS PROFESSIONAL CONSULT Routine 03/11/2021 3:00 PM STEAM BRUSH OPERATOR Visit Diagnoses Not on file Insurance [employer] PPO
[2024-09-19 12:19] VITALS: BP 125/89; PULSE 66; RESP 16; O2SAT 99
[2024-09-19 13:45] VITALS: BP 124/83; PULSE 62; RESP 16; O2SAT 97
== END 2024-09-19 13:46 | disposition home or self-care (01) ==
PROVIDERS: Emergency Medicine; Emergency Provider Physician Assistant; PCP Nurse Practitioner
DX: K80.20 Calculus of gallbladder without cholecystitis without obstruction (principal); K58.9 Irritable bowel syndrome, unspecified; K21.9 Gastro-esophageal reflux disease without esophagitis
CPT/HCPCS: 36415; 74177; 76705; 80053; 81001; 81025; 83690; 85025; 87086; 96374; 96375; 99284; A9270; J2405; Q9967

== ENCOUNTER 2024-10-03 01:30 | Day surgery (SDC) | payer OTHER, SELFPAY ==
[2024-09-28 09:50] VITALS: BMI 26.3
--- NOTE | 2024-09-28 09:51 | PC.NURSE ---
Report to the Outpatient Waiting Room, entrance under the green pavilion located off [facility], at time _1130_ on date _[phone]_. Planned Procedure Time: _130pm_.? Time changes happen often and if your time is changed the preop area will call you the afternoon before. - You and your visitor will be asked to self-screen and do not enter if you have any COVID symptoms. Please call surgeon if you need to reschedule. - A mask is optional within the hospital at this time. Patients may have clear liquids (water, carbonated beverages, clear teas, apple juice) until 3 hours prior to surgery with a maximum of 20 ounces. - No food from midnight until time of surgery and no smoking, or chewing tobacco (or any form of nicotine). No chewing gum, candy or mints. Take only the following medications with a SIP of water on the morning of surgery: ___None___ DO NOT STOP ANY OF YOUR OTHER PRESCRIPTION MEDICATIONS PRIOR TO SURGERY EXCEPT THE FOLLOWING Hold all vitamins and supplements for 3 days per anesthesiologist. Medications to discontinue per physician Date to take last dose____ Please no make-up, nail azerbaijani, hairspray, perfume, deodorant, or body powder the day of surgery.? No jewelry (including any body piercings) or valuables the day of surgery, leave them at home.? Please take a shower or bath the night before, or the morning of, surgery with an antibacterial soap.? Wear comfortable, loose fitting clothing.? - Jewelry must be removed prior to entering the operating room.? Rings and piercings that are not removed may be cut off. - The hospital will not accept responsibility for valuables.? - Please leave all valuables, including medications, at home the day of surgery. If you are going home after surgery, a licensed pile driver operator helper must drive you home.? - NO public transportation without another adult if you receive anesthesia. - We recommend that an adult stay with you for 24 hours following discharge. - We also recommend that you do not drive, make important decision, drink alcoholic beverages, or take any drugs that were not prescribed by your health care provider for at least 24 hours after your discharge time. Follow any additional instructions given to you from your surgeon. Telephone instructions given to __Erica__and asked if any additional questions and then verbalized understanding. Patient advised to call surgeon office or pre surgery nurse liaison [phone] if any additional questions.
[2024-10-03] VITALS (8 sets, daily range): BP systolic 114–146; BP diastolic 65–99; PULSE 45–81; RESP 10–15; TEMP 36.6; O2SAT 98–100; BMI 25.8
[2024-10-03] MEDS: LACTATED RINGERS 1,000 ML 30 ML IV CONT ×2 (12:05→15:04)
[2024-10-03] MEDS: ACETAMINOPHEN 500 MG TABLET 1000 MG PO (12:10)
[2024-10-03] MEDS: KETOROLAC 15 MG/ML VIAL (*BKC) IV PUSH (12:10)
[2024-10-03 12:23] LABS: Amylase 58 U/L (30-110)
[2024-10-03 12:28] LABS: BEDSIDEPREGUCG Negative (Negative)
--- NOTE | 2024-10-03 12:48 | WPDHPUPDATE1 ---
History and Physical Update Update Date/Time: 10/03/24 12:48 History and Physical has been reviewed, including an updated exam of the patient. There are NO changes in the patient's condition. Risks, benefits, and alternatives have been discussed and questions answered. Patient agrees to proceed with procedure.
--- NOTE | 2024-10-03 13:52 | WPDANESEPPF ---
Anes - Initial Pre Proc Eval Procedure: Operation Date: 10/03/24 13:30 Proposed Procedures p Laparoscopic Cholecystectomy - Carolina Camacho MD Date/Time: 10/03/24 13:52 Surgeon: Carolina Camacho MD Pre Op Diagnosis: chronic cholecystitis Patient Data Age: 29 Gender: F Height: 1.63 m Weight: 68.35 kg Last Vital Signs Temp 36.6 C 10/03/24 11:30 Pulse 62 10/03/24 11:30 Resp 14 10/03/24 11:30 BP 133/88 10/03/24 11:30 Pulse Ox 100 10/03/24 11:30 Allergies Allergy/AdvReac Type Severity Reaction Status Date / Time No Known Allergies Allergy Verified 10/03/24 12:14 Home Medications ?Medication ?Instructions ?Recorded ?Confirmed ?Type pantoprazole 40 mg tablet,delayed 40 mg PO DAILY #30 tabs 03/21/22 09/28/24 Rx release (Protonix) hydrocodone 5 mg-acetaminophen 325 1 tablet PO Q6H PRN pain #20 tabs 10/03/24 Rx mg tablet Laboratory Tests 10/03/24 10/03/24 11:30 11:58 Amylase 58 U/L (30-110) POC Urine HCG, Qual Negative (Negative) Patient hx anesthesia problems: none Family hx anesthesia problems: none Results Review: All pre-operative results and documents have been reviewed as part of the pre-operative evaluation. [facility] Past Medical History Medical History Abdominal cramping Bloating Irritable bowel syndrome GERD (gastroesophageal reflux disease) Social History Social History Smoking status: Never smoker Alcohol intake: never Substance use: never Substance use type: does not use Do You Feel Safe in your Home?: Yes Lack of Transportation: No Lack of Food: Never True Current Housing: I Have Housing Concerned About Future Housing: No Difficulty Paying Gas/Electric Bills: No Difficulty Paying for Meds: No Currently Unemployed: No Education: Master's Degree or Higher Difficulty w/ Childcare or Family Care: No Living arrangements: with family Occupation/Education: occupation Spiritual care concerns: No Agree to blood products: Yes Anes - Eval Final PreProcedure Day of Procedure 10/03/24 13:52 Patient weight: overweight Heart: regular rate and rhythm Lungs: clear to auscultation Airway: Mallampati scale class II Neurological: alert and oriented Last oral intake: >/= 8 hours ASA classification: II Emergent: no Anesthetic plan: proceed Anesthesia type and monitoring: general ETT and standard monitoring Results Review: All pre-operative results and documents have been reviewed as part of the pre-operative evaluation. Informed Consent: The patient's anesthetic plan and its attendant risks and benefits were discussed with the patient/family/POA. Questions were solicited and answers provided to the satisfaction of the patient/family/POA.
[2024-10-03] MEDS: ceFAZolin 2 GM/D5W 50 ML 2 GM/50 ML BAG IVPB (14:11)
--- NOTE | 2024-10-03 14:34 | S_PTH ---
PATIENT: Erica Herrera LOC: [facility] U#:[id number] AGE/SX: 29/F ROOM: RE10/03/[address]: Carolina Camacho MD : 1995 BED: DIS: 10/03/2024 SPEC #: [id number] RECD: 10/04/24 08:20 STATUS: CAYETANO REMing #: [id number] PEACE: 10/03/24 14:[address]: Carolina Camacho DEPT: [facility] Surgical RECD BY: Michel Landis ENTERED: 10/04/24 08:20 SP TYPE: Surgical OTHR DR: Maddy Garza, GAS STATION SUPERVISOR Tissues: A - Gallbladder Procedures: Hematoxylin and Eosin Stain Gross and Microscopic Level 3
[2024-10-03] MEDS: BUPIVACAINE/EPINEPHRINE 0.5% 50 ML VIAL 30 ML INFILTRATE (14:37)
--- NOTE | 2024-10-03 15:03 | P.OP_ITS ---
Procedure Note - Detailed Date of Procedure 10/03/24 Pre-op Diagnosis chronic cholecystitis Post-op Diagnosis Same Procedure Performed Laparoscopic cholecystectomy Surgeon Carolina Camacho MD Anesthesia General Indications 29-year-old female presented to the office complaining of postprandial right upper quadrant abdominal pain associated with nausea and vomiting. Workup including imaging significant for cholecystitis. Findings moderate cholecystitis Description of Procedure The patient was taken to the operating room placed in the supine position. After adequate induction of general anesthesia, the patient was prepped and draped in normal sterile fashion. A time-out was then performed to verify the patient's identity as well as the procedure being performed. I then made a 5 mm incision in the infraumbilical region. Through this, a Veress needle was placed into the peritoneal cavity and CO2 gas was then insufflated. After adequate pneumoperitoneum was achieved, the Veress needle was removed and a 5 mm optiview trocar was placed through this incision under direct visualization. I then placed the laparoscope through this trocar site and under direct visualization placed a further 12 mm subxiphoid port as well as 2 additional 5 mm ports in the right upper abdomen. The gallbladder was then identified and was noted to be moderately inflamed, distended. I was able to place a grasper at the dome of the gallbladder and this was retracted anterior and cephalad up over the liver. A 2nd retractor was then placed at the infundibulum and retracted laterally, this allowed visualization of the triangle of Calot. I then was able to visualize the cystic duct in its entirety from its proximal insertion into the gallbladder, to its distal junction with the common hepatic/common bile duct ju nction. At this point, I carefully skeletonized the proximal cystic duct with the [place] dissector. I then clipped and transected the proximal cystic duct. Next I visualized the cystic artery. Again the artery was skeletonized, clipped, and transected. I then used the Bovie cautery to take down the peritoneal attachments of the gallbladder off the liver bed. Once the gallbladder specimen was completely detached, an endo-pouch was placed through the 12 mm port site. I then placed the gallbladder specimen into the Endo pouch and removed the endo-pouch from the 12 mm port site. The specimen will now be sent to pathology for further review. I then copiously irrigated the right upper quadrant. Some mild oozing was noted in the liver bed and this was controlled with the bovie cautery. Hemostasis was noted in the liver bed, the clips were noted to be in good position on both the cystic duct stump and the cystic artery stump. No other pathology was noted in the right upper quadrant. I then moved the laparoscope to the subxiphoid port. No iatrogenic injury or other pathology was noted in the lower abdomen. I then closed the 12 mm trocar site under direct visualization using the Mamadou cone and 0 Vicryl suture. At this point, the abdomen was desufflated and all ports removed. All port sites were then closed with 4.O Monocryl subcuticular sutures. Dermabond was placed on each incision. The patient tolerated the procedure well, was extubated in the operating room postoperative and will be transferred to the recovery room in stable condition Estimated Blood Loss 10 Drains No Packing No Pathology Yes Complications No immediate complications Condition Stable Disposition PACU [facility] Billing Surgery - Charge Forward: Surgery Billing
[2024-10-03] MEDS: fentaNYL CITRATE INJ (*CRX) 100 MCG/2 ML VIAL 25 MCG IV PUSH (15:20)
[2024-10-03] MEDS: oxyCODONE HCL (*CRX) 5 MG TAB IR PO (16:22)
== END 2024-10-03 17:10 | disposition home or self-care (01) ==
PROVIDERS: PCP Nurse Practitioner; Visit Provider Surgery
PROC: 0FT44ZZ Resection of Gallbladder, Percutaneous Endoscopic Approach (ICD-10-PCS; CPT 47562; principal; 2024-10-03 13:30)
DX: K80.20 Calculus of gallbladder without cholecystitis without obstruction (principal)
CPT/HCPCS: 47562; 36415; 82150; 88304; A9270; J0690; J1100; J1885; J2250; J2405; J2704; J3010; J7030; J7120

== ENCOUNTER 2025-01-27 14:27 | Outpatient (CLI) | payer OTHER, SELFPAY ==
--- NOTE | ~2025-01-27 | US_ITS ---
EXAMINATION: US OB transvaginal DATE: 01/27/2025 14:56 INDICATION: Spotting. First trimester. TECHNIQUE: Real-time transvaginal obstetric ultrasound. FINDINGS: No prior studies for comparison. The uterus measures 9.1 x 5.2 x 6.1 cm. There is an intrauterine gestational sac, with pole identified. The crown rump length measures 0.64 cm, which correlates with a estimated gestational age of 6 weeks 3 days. heart tones are identified measuring 125 BPM. Right ovary is normal measuring 3 x 2.7 x 2.2 cm. Left ovary measures 4.5 x 2.4 x 3.1 cm and contains a 1.7 cm corpus luteal cyst. IMPRESSION: 1. SL IUP with an EGA of 6 weeks, 3 days (EDC by current ultrasound of 09/19/2025). Reviewed, dictated and finalized at location O. IMPRESSION: 1. SL IUP with an EGA of 6 weeks, 3 days (EDC by current ultrasound of ).
== END 2025-01-27 14:28 | disposition home or self-care (01) ==
LOC: MICIMG 14:28
PROVIDERS: PCP Nurse Practitioner; Visit Provider Obstetrics & Gynecology Gynecology
DX: O26.851 Spotting complicating pregnancy, first trimester (principal); Z3A.00 Weeks of gestation of pregnancy not specified
CPT/HCPCS: 76817